=== PATIENT | female | born 1985 | race Hispanic/Latino ===

== ENCOUNTER 2019-06-19 20:37 | Emergency (ER) | payer BC ==
[~2019-06-19] VITALS: Ht 157.5 cm; Wt 119.3 kg
[2019-06-19] MEDS ORDERED: CEFTRIAXONE SOD 1 GM/NS 50 ML 50 ML IV ONE (23:00)
[2019-06-19] MEDS ORDERED: CEFTRIAXONE SOD 1 GM VIAL ONE (23:13)
[2019-06-19] MEDS ORDERED: LIDOCAINE HCL 1% LOCAL INJ 20 ML VIAL ONE (23:14)
[2019-06-19] MEDS ORDERED: CEFTRIAXONE SOD 1 GM VIAL IM ONE (23:45)
== END 2019-06-20 00:09 | disposition home or self-care (01) ==
LOC: FSED 20:37
DX: R50.9 Fever, unspecified (principal); J03.00 Acute streptococcal tonsillitis, unspecified; R51 Headache
CPT/HCPCS: 96372; 99283